=== PATIENT | female | born 2000 | race African-American/Black ===

== ENCOUNTER 2024-04-29 10:43 | Emergency (ER) | payer OTHER, SELFPAY ==
[2024-04-29 10:51] VITALS: BP 116/76; PULSE 74; RESP 19; TEMP 36.6; O2SAT 99
[2024-04-29 11:56] LABS: Bacteria Urine None Seen; Culture Indicated Urine Cult Not Indicated; RBC Urine 0-1/HPF (0-5/HPF); Squamous Epithelial Cell Urine None Seen (0-5/HPF); Urine Volume 10mL (spun); WBC Urine None Seen (0-5/HPF)
--- NOTE | 2024-04-29 12:04 | ED.ABDPAIN ---
HPI - Abdominal Pain <Ezequiel Medrano PA-C - Last Filed: 04/29/24 14:34> General Chief Complaint: Abdominal Pain Stated Complaint: Stomach pain, throwing up last night Time Seen by Provider: 04/29/24 11:43 Source: patient Mode of arrival: Ambulatory History of Present Illness HPI narrative: 23-year-old female with no reported past medical history presents to the ED with 2 days of nausea, vomiting, abdominal pain. Patient states her symptoms started last night with nausea and vomiting, she had 1 episode of vomiting. This morning she awoke to abdominal pain and continuing nausea. Patient endorses generalized abdominal pain. No fever, chills, chest pain, shortness of breath, lightheadedness, dizziness, syncope. No diarrhea. Related Data Allergies Allergy/AdvReac Type Severity Reaction Status Date / Time No Known Drug Allergies Allergy Verified 04/29/24 12:21 Review of Systems <Ezequiel Medrano PA-C - Last Filed: 04/29/24 14:34> Constitutional Constitutional: Denies chills, Denies fatigue, Denies fever(s), Denies frequent falls, Denies lethargy and Denies weakness Eyes Eyes: Denies change in vision, Denies eye discharge, Denies irritation and Denies loss of vision ENT Ears, Nose, Mouth, and Throat: Denies change in voice, Denies dizziness, Denies neck pain, Denies sore throat and Denies throat swelling Cardiovascular Cardiovascular: Denies chest pain, Denies irregular heart rhythm, Denies lightheadedness, Denies palpitations, Denies dyspnea, Denies dyspnea on exertion and Denies orthopnea Respiratory Respiratory: Denies cough, Denies dyspnea, Denies dyspnea on exertion and Denies wheezing Gastrointestinal Gastrointestinal: Reports abdominal pain, Denies change in bowel habits, Denies diarrhea, Reports nausea and Reports vomiting Musculoskeletal Musculoskeletal: Denies neck pain and Denies numbness Integumentary/Breasts Skin/Breast: Denies pruritus, Denies erythema, Denies rash and Denies wounds Neurologic Neurologic: Denies behavioral changes, Denies confusion, Denies dizziness, Denies frequent falls, Denies loss of vision, Denies numbness and Denies weakness Psychiatric Psychiatric: Denies anxiety, Denies behavioral changes, Denies confusion, Denies depression, Denies homicidal ideation and Denies suicidal ideation Endocrine Endocrine: Denies fatigue, Denies flushing and Denies palpitations Hematologic/Lymphatic Hematologic/Lymphatic: Denies easy bruising Allergic/Immunologic Allergic/Immunologic: Denies urticaria, Denies throat swelling and Denies wheezing Patient History <Ezequiel Medrano PA-C - Last Filed: 04/29/24 14:34> Social History Smoking Status: Never smoker Smoking Status: Never smoker Exam <Ezequiel Medrano PA-C - Last Filed: 04/29/24 14:34> Narrative Exam Narrative: Const General:?cooperative, healthy appearing and comfortable [facility] Head:?normal to inspection Ears:?hearing grossly normal bilaterally Nose:?external nose normal Face and sinus:?normal facial exam and sinuses nontender Mouth:?oral mucosae normal Throat:?posterior oropharynx normal Eyes General:?appearance normal, both eyes and all related structures Neck Neck:?normal visual inspection and no lymphadenopathy noted Resp Effort & Inspection:?normal respiratory effort Auscultation:?clear to auscultation bilaterally Cardio Rate:?regular rate Rhythm:?regular rhythm GI Tenderness to palpation in the epigastric, upper quadrants, suprapubic region. Abdomen is soft, nondistended. Neuro General:?patient alert, patient awake and patient oriented x3 Initial Vital Signs Initial Vital Signs: Vital Signs Temperature 97.9 F 04/29/24 10:51 Pulse Rate 74 04/29/24 10:51 Respiratory Rate 19 04/29/24 10:51 Blood Pressure 116/76 04/29/24 10:51 Pulse Oximetry 99 04/29/24 10:51 Oxygen Delivery Method Room Air 04/29/24 10:51 <Genevieve Reza DO - Last Filed: 05/01/24 23:17> Initial Vital Signs Initial Vital Signs: Vital Signs Temperature 97.9 F 04/29/24 10:51 Pulse Rate 74 04/29/24 10:51 Respiratory Rate 19 04/29/24 10:51 Blood Pressure 116/76 04/29/24 10:51 Pulse Oximetry 99 04/29/24 10:51 Oxygen Delivery Method Room Air 04/29/24 10:51 Course <Ezequiel Medrano PA-C - Last Filed: 04/29/24 14:34> Orders Ordered: Discontinued Medications Ketorolac Tromethamine (Ketorolac 30 Mg/Ml Vial) 15 mg IV NOW ONE Stop: 04/29/24 12:11 Last Admin: 04/29/24 12:21 Dose: 15 mg Documented By: ES Ondansetron HCl (Ondansetron 4 Mg/2 Ml Inj) 4 mg IV NOW ONE Stop: 04/29/24 12:12 Last Admin: 04/29/24 12:22 Dose: 4 mg Documented By: ES Vital Signs Vital signs: Vital Signs - 8 hr 04/29/24 10:51 Temperature 97.9 F Pulse Rate 74 Respiratory Rate 19 Blood Pressure 116/76 Pulse Oximetry 99 Oxygen Delivery Method Room Air <Genevieve Reza DO - Last Filed: 05/01/24 23:17> Orders Ordered: Discontinued Medications Ketorolac Tromethamine (Ketorolac 30 Mg/Ml Vial) 15 mg IV NOW ONE Stop: 04/29/24 12:11 Last Admin: 04/29/24 12:21 Dose: 15 mg Documented By: ES Ondansetron HCl (Ondansetron 4 Mg/2 Ml Inj) 4 mg IV NOW ONE Stop: 04/29/24 12:12 Last Admin: 04/29/24 12:22 Dose: 4 mg Documented By: ES Vital Signs Vital signs: Vital Signs - 8 hr 04/29/24 10:51 Temperature 97.9 F Pulse Rate 74 Respiratory Rate 19 Blood Pressure 116/76 Pulse Oximetry 99 Oxygen Delivery Method Room Air MDM - Abdominal Pain <Ezequiel Medrano PA-C - Last Filed: 04/29/24 14:34> Lab Data 04/29/24 12:25 04/29/24 12:25 Labs: Lab Results 04/29/24 04/29/24 Range/Units 11:20 12:25 WBC 6.5 (4.5-11.0) X10^3/uL RBC 4.15 (4.0-5.2) X10^6/uL Hgb 12.5 (12.0-16.0) g/dL Hct 36.7 (36-46) % MCV 88.4 (80-100) fL MCH 30.0 (26-34) PG MCHC 34.0 (30-36) % RDW 12.6 (11.6-14.8) % Plt Count 180 (150-400) X10^3/uL Neut % (Auto) 65.1 (50-75) % Lymph % (Auto) 26.8 (25-40) % Bibb % (Auto) 6.7 (3-14) % Eos % (Auto) 1.1 L (2-4) % Baso % (Auto) 0.3 (0-2) % Neut # (Auto) 4200 (8740-2736) /uL Lymph # (Auto) 1700 (0613-2371) /uL Bibb # (Auto) 400 (0-900) /uL Eos # (Auto) 100 (0-450) /uL Baso # (Auto) 0 (0-100) /uL PT 12.7 H (9.4-12.5) SECONDS INR 1.1 (0.9-1.3) APTT 36 (25.1-36.5) SECONDS Sodium 136 L (137-145) mmol/L Potassium 3.8 (3.4-5.1) mmol/L Chloride 104 (98-107) mmol/L Carbon Dioxide 23 (22-32) mmol/L BUN 16 (7-17) mg/dL Creatinine 0.77 (0.52-1.04) mg/dL Estimated GFR > 60 (>60) mL/min BUN/Creatinine Ratio 20.8 (6-22) Glucose 95 (70-100) mg/dL Calcium 9.2 (8.4-10.2) mg/dL Total Bilirubin 1.3 (0.2-1.3) mg/dL AST 133 H (14-36) IU/L ALT 36 H (<35) IU/L Alkaline Phosphatase 46 (38-126) U/L Total Protein 7.1 (6.3-8.2) g/dL Albumin 4.3 (3.5-5.0) g/dL Globulin 2.8 (1.7-4.1) g/dL Albumin/Globulin Ratio 1.5 (1.0-2.8) Lipase 180 (23-300) U/L Urine RBC 0-1/hpf (0-5/HPF) Urine WBC None seen (0-5/HPF) Ur Squamous Epith Cells None seen (0-5/HPF) Urine Bacteria None seen (None) Ur Culture Indicated? Cult not indicated Vol Urine Centrifuged 10ml (spun) Point of care testing: Point of Care Testing Test Results Negative Urine Dip Bedside Urine Glucose Negative Bedside Urine Bilirubin - Negative Bedside Urine Ketone - Negative Urine Specific [place] 1.015 Bedside Urine Occult Blood +/- Bedside Urine pH 7.0 Bedside Urine Protein - Negative Bedside Urine Urobilinogen - Negative Bedside Urine Nitrite - Negative Bedside Urine Leukocytes - Negative Esterase MDM Narrative Medical decision making narrative: 23-year-old female with no reported past medical history presents to the ED with 2 days of nausea, vomiting, abdominal pain. Concern for gastritis versus GERD versus PUD versus appendicitis versus biliary etiology versus other intra-abdominal pathology versus other. Will obtain labs, UA, CT abdomen pelvis. Will consider ultrasound. Will give Toradol, Zofran for symptoms. UA without UTI. Transaminases elevated with AST 133, ALT 36. All other labs within normal limits. CT abdomen pelvis shows a left ovarian cyst measuring 4.9 cm. Pelvic ultrasound was obtained to rule out ovarian torsion. Ultrasound with no evidence of ovarian torsion. Slightly complicated cystic structure is noted in the left ovary measures 5.3 x 4.8 x 2.9 cm in size, and may represent complex ovarian cyst versus cystic neoplasm. No right ovarian lesion. Normal-appearing uterus and endometrium. Discussed findings with patient. Recommend follow-up with OBGYN for further evaluation and treatment. ED return precautions discussed with patient. Patient verbalized understanding. Medical records reviewed: Yes <Genevieve Reza DO - Last Filed: 05/01/24 23:17> Lab Data Labs: Lab Results 04/29/24 04/29/24 Range/Units 11:20 12:25 WBC 6.5 (4.5-11.0) X10^3/uL RBC 4.15 (4.0-5.2) X10^6/uL Hgb 12.5 (12.0-16.0) g/dL Hct 36.7 (36-46) % MCV 88.4 (80-100) fL MCH 30.0 (26-34) PG MCHC 34.0 (30-36) % RDW 12.6 (11.6-14.8) % Plt Count 180 (150-400) X10^3/uL Neut % (Auto) 65.1 (50-75) % Lymph % (Auto) 26.8 (25-40) % Bibb % (Auto) 6.7 (3-14) % Eos % (Auto) 1.1 L (2-4) % Baso % (Auto) 0.3 (0-2) % Neut # (Auto) 4200 (1139-1620) /uL Lymph # (Auto) 1700 (8547-7912) /uL Bibb # (Auto) 400 (0-900) /uL Eos # (Auto) 100 (0-450) /uL Baso # (Auto) 0 (0-100) /uL PT 12.7 H (9.4-12.5) SECONDS INR 1.1 (0.9-1.3) APTT 36 (25.1-36.5) SECONDS Sodium 136 L (137-145) mmol/L Potassium 3.8 (3.4-5.1) mmol/L Chloride 104 (98-107) mmol/L Carbon Dioxide 23 (22-32) mmol/L BUN 16 (7-17) mg/dL Creatinine 0.77 (0.52-1.04) mg/dL Estimated GFR > 60 (>60) mL/min BUN/Creatinine Ratio 20.8 (6-22) Glucose 95 (70-100) mg/dL Calcium 9.2 (8.4-10.2) mg/dL Total Bilirubin 1.3 (0.2-1.3) mg/dL AST 133 H (14-36) IU/L ALT 36 H (<35) IU/L Alkaline Phosphatase 46 (38-126) U/L Total Protein 7.1 (6.3-8.2) g/dL Albumin 4.3 (3.5-5.0) g/dL Globulin 2.8 (1.7-4.1) g/dL Albumin/Globulin Ratio 1.5 (1.0-2.8) Lipase 180 (23-300) U/L Urine RBC 0-1/hpf (0-5/HPF) Urine WBC None seen (0-5/HPF) Ur Squamous Epith Cells None seen (0-5/HPF) Urine Bacteria None seen (None) Ur Culture Indicated? Cult not indicated Vol Urine Centrifuged 10ml (spun) Point of care testing: Point of Care Testing Test Results Negative Urine Dip Bedside Urine Glucose Negative Bedside Urine Bilirubin - Negative Bedside Urine Ketone - Negative Urine Specific [place] 1.015 Bedside Urine Occult Blood +/- Bedside Urine pH 7.0 Bedside Urine Protein - Negative Bedside Urine Urobilinogen - Negative Bedside Urine Nitrite - Negative Bedside Urine Leukocytes - Negative Esterase Discharge Plan Departure Patient Disposition: Home Clinical Impression: Abdominal pain Qualifiers: Abdominal location: generalized Qualified Code(s): R10.84 - Generalized abdominal pain Ovarian cyst Qualifiers: Laterality: left Qualified Code(s): N83.202 - Unspecified ovarian cyst, left side Instructions: DI for Ovarian Cyst, DI for Abdominal Pain-Adult Activity Restrictions/Additional Instructions: You were evaluated in the ED today for abdominal pain, nausea and vomiting. Your CT scan and ultrasound show a left ovarian cyst, but no other abnormalities. While this ovarian cyst could be causing your symptoms, it is also possible that your symptoms could be from a touch of food poisoning, acid reflux. Please continue to stay well hydrated. Please follow-up with an OBGYN for further evaluation of the ovarian cyst. Return to the ED if you have worsening symptoms. Referrals: ProviderEmmanuel [Primary Care Provider] - Stand Alone Forms: Patient Portal/API/Survey ED Sign-out <Genevieve Reza DO - Last Filed: 05/01/24 23:17> Cosign ED Attending Darek Attestation: I was available for consultation.
--- NOTE | 2024-04-29 12:11 | DI.CT.S_ITS ---
PROCEDURE: CT ABDOMEN PELVIS W CON INDICATIONS: abd pain TECHNIQUE: After the administration of intravenous contrast, axial sections acquired from the lung bases to the pubic symphysis. Coronal and sagittal reformats were performed. For radiation dose reduction, the following was used: automated exposure control, adjustment of mA and/or kV according to patient size. COMPARISON: None. FINDINGS: Image quality: Diagnostic. Lower Chest: No significant findings. ABDOMEN: Liver: No solid mass. Gallbladder: No radiopaque gallstones or wall thickening. Biliary ducts: No biliary dilation. Pancreas: No ductal dilation. Spleen: Size is within normal limits. Adrenal Glands: No adrenal nodules. Kidneys and Ureters: No hydronephrosis. No solid mass. No complex renal cystic lesion which requires follow up. Stomach and Bowel: Normal colonic caliber, without significant wall thickening. Normal appendix. Peritoneum: No abnormal intraperitoneal fluid. No free air. Ventral Wall: No significant ventral hernia. Abdominal Nodes: No retroperitoneal or mesenteric adenopathy by size criteria. Vessels: Aorta and inferior vena cava are normal in size. PELVIS: Pelvic Organs: Left ovarian cyst measuring 4.9 cm. Bladder: No bladder wall thickening, accounting for underdistention. Pelvic Nodes: No enlarged lymph nodes. Miscellaneous: No inguinal hernias are seen. Bones: No aggressive osseous abnormality. IMPRESSION: Left ovarian cyst measuring 4.9 cm. If there is left lower quadrant pain, consider sonographic evaluation to exclude ovarian torsion. Otherwise, no findings to explain the patient's abdominal pain. Normal appendix, normal gallbladder, normal kidneys. Dictated by: Anthony Linda M.D. on 04/29/2024 at 13:18 Approved by: Anthony Linda M.D. on 04/29/2024 at 13:20
[2024-04-29] MEDS: KETOROLAC 30 MG/ML VIAL 15 MG IV (12:21)
[2024-04-29] MEDS: ONDANSETRON 4 MG/2 ML INJ IV (12:22)
[2024-04-29 12:37] LABS: Add Manual Diff / Slide Review NO; Basophils Absolute Auto 0 /uL (0-100); Basophils Percent Auto 0.3 % (0-2); Eosinophils Absolute Auto 100 /uL (0-450); Eosinophils Percent Auto 1.1 % (2-4); Hematocrit 36.7 % (36-46); Hemoglobin 12.5 g/dL (12.0-16.0); Lymphocytes Absolute Auto 1700 /uL (1100-4500); Lymphocytes Percent Auto 26.8 % (25-40); Mean Corpuscular Volume 88.4 fL (80-100); Monocytes Absolute Auto 400 /uL (0-900); Monocytes Percent Auto 6.7 % (3-14); Neutrophils Absolute Auto 4200 /uL (1500-7000); Neutrophils Percent Auto 65.1 % (50-75); Platelet Count 180 X10^3/uL (150-400); Red Blood Cell Count 4.15 X10^6/uL (4.0-5.2); Red Cell Distribution Width 12.6 % (11.6-14.8); White Blood Cell Count 6.5 X10^3/uL (4.5-11.0)
[2024-04-29 12:49] LABS: INR 1.1 (0.9-1.3); Prothrombin Time 12.7 SECONDS (9.4-12.5)
[2024-04-29 12:51] LABS: PTT Partial Thromboplastin Tim 36 SECONDS (25.1-36.5)
[2024-04-29 12:53] LABS: Alanine Aminotransferase 36 IU/L (<35); Albumin 4.3 g/dL (3.5-5.0); Albumin Globulin Ratio 1.5 (1.0-2.8); Alkaline Phosphatase 46 U/L (38-126); Aspartate Aminotransferase 133 IU/L (14-36); BUN Creatinine Ratio 20.8 (6-22); Bilirubin Total 1.3 mg/dL (0.2-1.3); Blood Urea Nitrogen 16 mg/dL (7-17); Calcium 9.2 mg/dL (8.4-10.2); Carbon Dioxide 23 mmol/L (22-32); Chloride 104 mmol/L (98-107); Estimated Glomerular Filt Rate > 60 mL/min (>60); Globulin 2.8 g/dL (1.7-4.1); Glucose 95 mg/dL (70-100); HEMOLYSIS < 15 (0-50); Lipase 180 U/L (23-300); Potassium 3.8 mmol/L (3.4-5.1); Sodium 136 mmol/L (137-145); Total Protein 7.1 g/dL (6.3-8.2)
--- NOTE | 2024-04-29 13:28 | DI.US.S_ITS ---
PROCEDURE: US PELVIC COMPLETE INDICATIONS: L ovarian cyst; ?torsion TECHNIQUE: Real-time scanning was performed of the pelvic organs, with image documentation. Additional endovaginal scanning was necessary due to incomplete visualization of the adnexal and endometrial structures by transabdominal scanning. COMPARISON: [facility], CT, CT ABDOMEN PELVIS W CON, 04/29/2024, 12:58. FINDINGS: Uterus: Uterus is anteverted and normal in size at 8.6 x 3.5 x 5.8 cm. The myometrium is homogeneous. The endometrium measures 12.9 mm combined thickness. No endometrial mass or fluid. Ovaries: The right ovary measures 2.5 x 2.6 x 2.2 cm, with a calculated ovarian volume of 7.4 cc. The left ovary measures 5.3 x 2.6 x 5.5 cm, with a calculated ovarian volume of 53.9 cc. Cystic structure is noted in left ovary measures 5.3 x 4.8 x 2.9 cm in size without internal vascularity. Questionable internal debris and possible soft tissue echotexture area is noted. Less than 12 follicles can be seen in each ovary. Normal arterial and venous flow is seen in bilateral images. No adnexal masses are seen. Other: No pathologic free abdominal or pelvic fluid. IMPRESSION: 1. No evidence of ovarian torsion. Slightly complicated cystic structure is noted in left ovary measures 5.3 x 4.8 x 2.9 cm in size and may represent complex ovarian cyst versus cystic neoplasm. Short term 4-6 week ultrasound follow-up is recommended. 2. No right ovarian lesion. Normal appearing uterus and endometrium. We strive to produce accurate, complete, and clear reports of imaging services. To assist us in improving patient care, this report was composed using standard report templates and voice recognition software. Therefore, it may contain abnormal punctuation, insertions and/or omissions. Occasional wrong-word or sound-alike substitutions may occur. Though we review the report and make efforts to correct it, we do recommend that the report be read carefully in proper context to recognize any text inaccuracies. Dictated by: Lauro Bates M.D. on 04/29/2024 at 14:00 Approved by: Lauro Bates M.D. on 04/29/2024 at 14:05
[2024-04-29 14:37] VITALS: BP 108/76; PULSE 85; RESP 16; O2SAT 99
== END 2024-04-29 14:44 | disposition home or self-care (01) ==
PROVIDERS: Emergency Medicine; Emergency Provider Student in an Organized Health Care Education/Training Program
DX: R10.84 Generalized abdominal pain (principal); R11.2 Nausea with vomiting, unspecified; N83.202 Unspecified ovarian cyst, left side
CPT/HCPCS: 36415; 74177; 76856; 80053; 81003; 81015; 81025; 83690; 85025; 85610; 85730; 93975; 96374; 96375; 99284; J1885; J2405; Q9967

== ENCOUNTER 2024-09-11 20:32 | Emergency (ER) | payer OTHER, SELFPAY ==
[2024-09-11] VITALS (9 sets, daily range): BP systolic 104–125; BP diastolic 59–61; PULSE 76–95; RESP 16–21; TEMP 36.8; O2SAT 99–100; BMI 19.8
--- NOTE | 2024-09-11 21:14 | ED.SEIZURE ---
HPI - Seizure <Jhon Betst MD - Last Filed: 09/12/24 07:46> General Chief Complaint: Seizure Stated Complaint: seizure like activity Time Seen by Provider: 09/11/24 21:08 Source: patient and EMS Mode of arrival: EMS History of Present Illness HPI Narrative: 23-year-old female had ground level fall yesterday, evaluated at [facility], no imaging recalled, today seemed to have shaking atypical motor activity, concern for seizures. No known seizure activity. No new medications or change in medications. No drug or alcohol use suspected. No history of diabetes, no history of low sugar problems. Related Data Allergies Allergy/AdvReac Type Severity Reaction Status Date / Time No Known Drug Allergies Allergy Verified 04/29/24 12:21 Exam <Jhon Betts MD - Last Filed: 09/12/24 07:46> Narrative Exam Narrative: GENERAL: Called to room shortly after triage for shaking, atypical shaking non tonic clonic HEAD: Atraumatic. Small 1cm left forehead laceration looks consistent with from yesterday, not obviously infected. EYES: Pupils equal round and reactive. Extraocular motions intact. No scleral icterus. No injection or drainage. ENT: Nose without bleeding, purulent drainage. Airway patent. NECK: Trachea midline. Non tender CARDIOVASCULAR: Regular rate and rhythm without murmurs, gallops, or rubs. RESPIRATORY: Clear to auscultation. Breath sounds equal bilaterally. No wheezes, rales, or rhonchi. GASTROINTESTINAL: Abdomen soft, non-tender, nondistended. EXTREMITIES: No edema or joint tenderness. BACK: Nontender without deformity or crepitance. No flank tenderness. NEURO: AOx3. Atypical non tonic-clonic like motor activity, sitting up and then thrashing back down. Non directable. Pupils conjugate. No posturing, moves arms and legs but not to command. No facial droop. SKIN: No rash or erythema of visible areas Initial Vital Signs Initial Vital Signs: Vital Signs Pulse Rate 84 09/11/24 20:39 Respiratory Rate 21 09/11/24 20:39 Pulse Oximetry 100 09/11/24 20:39 <Andrae Bain DO - Last Filed: 09/13/24 06:48> Initial Vital Signs Initial Vital Signs: Vital Signs Pulse Rate 84 09/11/24 20:39 Respiratory Rate 21 09/11/24 20:39 Pulse Oximetry 100 09/11/24 20:39 Course <Jhon Betts MD - Last Filed: 09/12/24 07:46> Orders Ordered: Discontinued Medications Diazepam (Diazepam 10 Mg/2 Ml Syringe) 5 mg IV NOW ONE Stop: 09/11/24 21:11 Last Admin: 09/11/24 21:21 Dose: 5 mg Documented By: ABIGAIL Diazepam (Diazepam 10 Mg/2 Ml Syringe) 5 mg IV NOW ONE Stop: 09/11/24 21:13 Last Admin: 09/11/24 21:21 Dose: Not Given Documented By: NEY Vital Signs Vital signs: Vital Signs - 8 hr 09/12/24 02:00 09/12/24 02:30 09/12/24 03:00 Pulse Rate 78 77 68 Respiratory Rate 21 30 H 21 Blood Pressure Pulse Oximetry 100 100 100 Oxygen Delivery Method 09/12/24 03:30 09/12/24 03:39 09/12/24 03:39 Pulse Rate 71 64 Respiratory Rate 20 24 Blood Pressure 109/58 L Pulse Oximetry 100 99 Oxygen Delivery Method 09/12/24 03:43 09/12/24 04:00 09/12/24 04:30 Pulse Rate 72 70 64 Respiratory Rate 18 26 H 17 Blood Pressure 109/58 L Pulse Oximetry 98 100 99 Oxygen Delivery Method Room Air 09/12/24 05:00 09/12/24 05:30 09/12/24 06:00 Pulse Rate 66 74 82 Respiratory Rate 17 18 16 Blood Pressure Pulse Oximetry 99 99 96 Oxygen Delivery Method 09/12/24 06:30 09/12/24 07:00 09/12/24 07:30 Pulse Rate 68 73 67 Respiratory Rate 20 19 18 Blood Pressure Pulse Oximetry 100 100 100 Oxygen Delivery Method 09/12/24 08:00 09/12/24 08:30 09/12/24 09:00 Pulse Rate 68 66 75 Respiratory Rate 23 18 Blood Pressure Pulse Oximetry 100 100 100 Oxygen Delivery Method 09/12/24 09:30 09/12/24 09:34 09/12/24 09:34 Pulse Rate 78 69 Respiratory Rate 14 Blood Pressure 101/59 L Pulse Oximetry 100 100 Oxygen Delivery Method <Andrae Bain DO - Last Filed: 09/13/24 06:48> Orders Ordered: Discontinued Medications Diazepam (Diazepam 10 Mg/2 Ml Syringe) 5 mg IV NOW ONE Stop: 09/11/24 21:11 Last Admin: 09/11/24 21:21 Dose: 5 mg Documented By: ABIGAIL Diazepam (Diazepam 10 Mg/2 Ml Syringe) 5 mg IV NOW ONE Stop: 09/11/24 21:13 Last Admin: 09/11/24 21:21 Dose: Not Given Documented By: NEY Vital Signs Vital signs: Vital Signs - 8 hr 09/12/24 02:00 09/12/24 02:30 09/12/24 03:00 Pulse Rate 78 77 68 Respiratory Rate 21 30 H 21 Blood Pressure Pulse Oximetry 100 100 100 Oxygen Delivery Method 09/12/24 03:30 09/12/24 03:39 09/12/24 03:39 Pulse Rate 71 64 Respiratory Rate 20 24 Blood Pressure 109/58 L Pulse Oximetry 100 99 Oxygen Delivery Method 09/12/24 03:43 09/12/24 04:00 09/12/24 04:30 Pulse Rate 72 70 64 Respiratory Rate 18 26 H 17 Blood Pressure 109/58 L Pulse Oximetry 98 100 99 Oxygen Delivery Method Room Air 09/12/24 05:00 09/12/24 05:30 09/12/24 06:00 Pulse Rate 66 74 82 Respiratory Rate 17 18 16 Blood Pressure Pulse Oximetry 99 99 96 Oxygen Delivery Method 09/12/24 06:30 09/12/24 07:00 09/12/24 07:30 Pulse Rate 68 73 67 Respiratory Rate 20 19 18 Blood Pressure Pulse Oximetry 100 100 100 Oxygen Delivery Method 09/12/24 08:00 09/12/24 08:30 09/12/24 09:00 Pulse Rate 68 66 75 Respiratory Rate 23 18 Blood Pressure Pulse Oximetry 100 100 100 Oxygen Delivery Method 09/12/24 09:30 09/12/24 09:34 09/12/24 09:34 Pulse Rate 78 69 Respiratory Rate 14 Blood Pressure 101/59 L Pulse Oximetry 100 100 Oxygen Delivery Method MDM - Seizure <Jhon Betts MD - Last Filed: 09/12/24 07:46> Lab Data Attestation: I reviewed the patient's lab results. Lab results narrative: POC glucose 116. White blood cell count 9100, hemoglobin 13.7, platelets adequate. Glucose 105. Normal renal function. Serum CO2 21 mildly decreased. Electrolytes unremarkable including magnesium. Serum hCG negative. Liver functions normal. Ethanol level negative. 09/11/24 20:35 09/11/24 20:35 Labs: Lab Results 09/11/24 09/11/24 09/11/24 Range/Units 20:35 21:11 23:04 WBC 9.1 (4.5-11.0) X10^3/uL RBC 4.50 (4.0-5.2) X10^6/uL Hgb 13.7 (12.0-16.0) g/dL Hct 39.8 (36-46) % MCV 88.3 (80-100) fL MCH 30.4 (26-34) PG MCHC 34.4 (30-36) % RDW 12.7 (11.6-14.8) % Plt Count 233 (150-400) X10^3/uL Neut % (Auto) 49.0 L (50-75) % Lymph % (Auto) 42.2 H (25-40) % [place] % (Auto) 7.4 (3-14) % Eos % (Auto) 1.0 L (2-4) % Baso % (Auto) 0.4 (0-2) % Neut # (Auto) 4500 (9221-8121) /uL Lymph # (Auto) 3800 (9585-8656) /uL [place] # (Auto) 700 (0-900) /uL Eos # (Auto) 100 (0-450) /uL Baso # (Auto) 0 (0-100) /uL Sodium 138 (137-145) mmol/L Potassium 3.4 (3.4-5.1) mmol/L Chloride 103 (98-107) mmol/L Carbon Dioxide 21 L (22-32) mmol/L BUN 17 (7-17) mg/dL Creatinine 0.96 (0.52-1.04) mg/dL Estimated GFR > 60 (>60) mL/min BUN/Creatinine Ratio 17.7 (6-22) Glucose 105 H (70-99) mg/dL POC Whole Bld Glucose 116 H (70-99) mg/dL Calcium 9.6 (8.4-10.2) mg/dL Magnesium 1.7 (1.6-2.3) mg/dL Total Bilirubin 1.1 (0.2-1.3) mg/dL AST 30 (14-36) IU/L ALT 16 (<35) IU/L Alkaline Phosphatase 52 (38-126) U/L Troponin I (0.01-0.034) ng/mL Total Protein 7.9 (6.3-8.2) g/dL Albumin 4.7 (3.5-5.0) g/dL Globulin 3.2 (1.7-4.1) g/dL Albumin/Globulin Ratio 1.5 (1.0-2.8) HCG, Quant < 2.39 mIU/mL U Opiates 300ng/mL cut Negative (Negative) Ur Oxycodone Screen Negative (Negative) Urine Methadone Screen Negative (Negative) Ur Barbiturates Screen Negative (Negative) U Tricyclic Antidepress Negative (Negative) Ur Phencyclidine Scrn Negative (Negative) Ur Amphetamines Screen Negative (Negative) U Methamphetamines Scrn Negative (Negative) Ur MDMA Scrn (Ecstasy) Negative (Negative) U Benzodiazepines Scrn Negative (Negative) Urine Cocaine Screen Negative (Negative) U Marijuana (THC) Screen Negative (Negative) Urine pH Normal (Normal) Urine Specific Lindsay Normal (Normal) Ethyl Alcohol < 10 (<10) mg/dL Ur Creatinine Normal (Normal) 09/12/ Range/Units 06:55 WBC (4.5-11.0) X10^3/uL RBC (4.0-5.2) X10^6/uL Hgb (12.0-16.0) g/dL Hct (36-46) % MCV (80-100) fL MCH (26-34) PG MCHC (30-36) % RDW (11.6-14.8) % Plt Count (150-400) X10^3/uL Neut % (Auto) (50-75) % Lymph % (Auto) (25-40) % [place] % (Auto) (3-14) % Eos % (Auto) (2-4) % Baso % (Auto) (0-2) % Neut # (Auto) (5896-5451) /uL Lymph # (Auto) (0500-6328) /uL [place] # (Auto) (0-900) /uL Eos # (Auto) (0-450) /uL Baso # (Auto) (0-100) /uL Sodium (137-145) mmol/L Potassium (3.4-5.1) mmol/L Chloride (98-107) mmol/L Carbon Dioxide (22-32) mmol/L BUN (7-17) mg/dL Creatinine (0.52-1.04) mg/dL Estimated GFR (>60) mL/min BUN/Creatinine Ratio (6-22) Glucose (70-99) mg/dL POC Whole Bld Glucose (70-99) mg/dL Calcium (8.4-10.2) mg/dL Magnesium (1.6-2.3) mg/dL Total Bilirubin (0.2-1.3) mg/dL AST (14-36) IU/L ALT (<35) IU/L Alkaline Phosphatase (38-126) U/L Troponin I < 0.012 (0.01-0.034) ng/mL Total Protein (6.3-8.2) g/dL Albumin (3.5-5.0) g/dL Globulin (1.7-4.1) g/dL Albumin/Globulin Ratio (1.0-2.8) HCG, Quant mIU/mL U Opiates 300ng/mL cut (Negative) Ur Oxycodone Screen (Negative) Urine Methadone Screen (Negative) Ur Barbiturates Screen (Negative) U Tricyclic Antidepress (Negative) Ur Phencyclidine Scrn (Negative) Ur Amphetamines Screen (Negative) U Methamphetamines Scrn (Negative) Ur MDMA Scrn (Ecstasy) (Negative) U Benzodiazepines Scrn (Negative) Urine Cocaine Screen (Negative) U Marijuana (THC) Screen (Negative) Urine pH (Normal) Urine Specific Lindsay (Normal) Ethyl Alcohol (<10) mg/dL Ur Creatinine (Normal) Imaging Data CT - cervical spine: Radiologist's Impression: [address] [address] [address] Scan Report Signed Patient: Elba Bales MR#: [id number] : 2000 Acct:[id number] Age/Sex: 23 / F Date of Service: 09/11/24 Loc: ED Accession Number: [id number] Procedure: CT cervical spine wo con Ordering Provider: Jhon Betts MD PROCEDURE: CT CERVICAL SPINE WO CON INDICATIONS: ?sz, recent fall TECHNIQUE: Noncontrast 3 mm thick sections acquired from the skull base to the T4 level. Sagittal and coronal reformats were then constructed. For radiation dose reduction, the following was used: automated exposure control, adjustment of mA and/or kV according to patient size. COMPARISON: None. FINDINGS: Image quality: Excellent. Bones: No fractures or dislocations. Visualized superior ribs are intact. Soft tissues: Prevertebral soft tissues are normal in thickness. No paravertebral hematomas. No apical pneumothoraces. IMPRESSION: No displaced fracture or traumatic subluxation. Dictated by: Edward Rousseau M.D. on 09/11/2024 at 21:43 Approved by: Edward Rousseau M.D. on 09/11/2024 at 21:45 CT scan - head: Radiologist's Impression: [place] [address] CT Scan Report Signed Patient: Elba Bales MR#: [id number] : 2000 Acct:[id number] Age/Sex: 23 / F Date of Service: 09/11/24 Loc: ED Accession Number: [id number] Procedure: CT head/brain wo con Ordering Provider: Jhon Betts MD PROCEDURE: CT HEAD/BRAIN WO CON INDICATIONS: fall trauma, ?sz TECHNIQUE: Noncontrast 4.5 mm thick angled axial sections acquired from the foramen magnum to the vertex, with coronal and sagittal reformats. For radiation dose reduction, the following was used: automated exposure control, adjustment of mA and/or kV according to patient size. COMPARISON: None. FINDINGS: Image quality: Diagnostic. CSF spaces: Basal cisterns are patent. No extra-axial fluid collections. Ventricles are normal in size and shape. Brain: No midline shift. No intracranial mass effect or hemorrhage. Quiroz-white matter interface is normal. Skull and face: Calvarium and visualized facial bones are intact, without suspicious lesions. Sinuses: Visualized sinuses and mastoids are clear. IMPRESSION: No acute intracranial pathology. Dictated by: Edward Rousseau M.D. on 09/11/2024 at 21:41 Approved by: Edward Rousseau M.D. on 09/11/2024 at 21:43 [facility] Narrative Medical decision making narrative: 23-year-old female with recent reported fall, evaluated at ED alternate facility yesterday, family believes patient did not have CT head neuro imaging, discharged home, no recent change in medications, today has atypical movement noted by family, concern for possible seizures. No new injury known. Afebrile. Shortly after arrival patient had thrashing about, shaking activity but non clonic tonic appearing, sitting up and thrashing backwards. Atypical for seizure-like activity. POC glucose 116. IV Valium. CT head noncontrast, CT cervical spine. Request records from [facility] from recent visit. DDx consider psychomotor agitation, dystonic reaction, intoxication, other. Seems less likely seizure activity with non tonic-clonic alternating shaking activity. Patient calm after IV Valium dose. Sent CT studies. Await records from [facility]. Sleeping after returned from CT. CT head no acute changes. CT cervical spine no acute changes. See radiology reports. [facility] records reviewed, patient had ground level fall with forehead contusion and moderate headache, CT head negative, EKG unremarkable, labs including test negative. Lab data: POC glucose 116. White blood cell count 9100, hemoglobin 13.7, platelets adequate. Glucose 105. Normal renal function. Serum CO2 21 mildly decreased. Electrolytes unremarkable. Serum hCG negative. Liver functions normal. Ethanol level negative. UDS negative. Mother called from [place], who is apparently coming to see patient in the morning. Mother reports recent visit [facility] area, ultrasound apparently done with some kind of concern for pelvic mass, test was negative today, patient did not seem to be endorsing any abdominopelvic pain but was quite agitated before IV Valium sedation. Currently sleeping. Consider ultrasound pelvis when patient awake, if she will allow. 0400, patient is still sleeping after Valium dose for emergent imaging. 0600, patient talking on the phone with her mother who is apparently traveling here from [place]. Some concern about some diagnosis of pelvic mass somewhere, very unclear history. Pelvic ultrasound done now this morning, verbal sonotech report small ovarian cyst only. Await Radiology over-read report. 0645, patient seems reluctant to be discharged, wants to stay until her mother gets here from [place] at 1:00 p.m., unclear end point, patient has concerns that she might have had a seizure, but she had thrashing about agitation activity here that did not seem consistent with seizure. Further observe per patient request. Consider group social worker consult, patient declined. 0700, signed out to Dr Bain <Andrae Bain, DO - Last Filed: 09/13/24 06:48> Lab Data Labs: Lab Results 09/11/24 09/11/24 09/11/24 Range/Units 20:35 21:11 23:04 WBC 9.1 (4.5-11.0) X10^3/uL RBC 4.50 (4.0-5.2) X10^6/uL Hgb 13.7 (12.0-16.0) g/dL Hct 39.8 (36-46) % MCV 88.3 (80-100) fL MCH 30.4 (26-34) PG MCHC 34.4 (30-36) % RDW 12.7 (11.6-14.8) % Plt Count 233 (150-400) X10^3/uL Neut % (Auto) 49.0 L (50-75) % Lymph % (Auto) 42.2 H (25-40) % [place] % (Auto) 7.4 (3-14) % Eos % (Auto) 1.0 L (2-4) % Baso % (Auto) 0.4 (0-2) % Neut # (Auto) 4500 (6395-6804) /uL Lymph # (Auto) 3800 (6742-2909) /uL [place] # (Auto) 700 (0-900) /uL Eos # (Auto) 100 (0-450) /uL Baso # (Auto) 0 (0-100) /uL Sodium 138 (137-145) mmol/L Potassium 3.4 (3.4-5.1) mmol/L Chloride 103 (98-107) mmol/L Carbon Dioxide 21 L (22-32) mmol/L BUN 17 (7-17) mg/dL Creatinine 0.96 (0.52-1.04) mg/dL Estimated GFR > 60 (>60) mL/min BUN/Creatinine Ratio 17.7 (6-22) Glucose 105 H (70-99) mg/dL POC Whole Bld Glucose 116 H (70-99) mg/dL Calcium 9.6 (8.4-10.2) mg/dL Magnesium 1.7 (1.6-2.3) mg/dL Total Bilirubin 1.1 (0.2-1.3) mg/dL AST 30 (14-36) IU/L ALT 16 (<35) IU/L Alkaline Phosphatase 52 (38-126) U/L Troponin I (0.01-0.034) ng/mL Total Protein 7.9 (6.3-8.2) g/dL Albumin 4.7 (3.5-5.0) g/dL Globulin 3.2 (1.7-4.1) g/dL Albumin/Globulin Ratio 1.5 (1.0-2.8) HCG, Quant < 2.39 mIU/mL U Opiates 300ng/mL cut Negative (Negative) Ur Oxycodone Screen Negative (Negative) Urine Methadone Screen Negative (Negative) Ur Barbiturates Screen Negative (Negative) U Tricyclic Antidepress Negative (Negative) Ur Phencyclidine Scrn Negative (Negative) Ur Amphetamines Screen Negative (Negative) U Methamphetamines Scrn Negative (Negative) Ur MDMA Scrn (Ecstasy) Negative (Negative) U Benzodiazepines Scrn Negative (Negative) Urine Cocaine Screen Negative (Negative) U Marijuana (THC) Screen Negative (Negative) Urine pH Normal (Normal) Urine Specific Lindsay Normal (Normal) Ethyl Alcohol < 10 (<10) mg/dL Ur Creatinine Normal (Normal) 09/12/24 Range/Units 06:55 WBC (4.5-11.0) X10^3/uL RBC (4.0-5.2) X10^6/uL Hgb (12.0-16.0) g/dL Hct (36-46) % MCV (80-100) fL MCH (26-34) PG MCHC (30-36) % RDW (11.6-14.8) % Plt Count (150-400) X10^3/uL Neut % (Auto) (50-75) % Lymph % (Auto) (25-40) % [place] % (Auto) (3-14) % Eos % (Auto) (2-4) % Baso % (Auto) (0-2) % Neut # (Auto) (9451-5751) /uL Lymph # (Auto) (9542-1541) /uL [place] # (Auto) (0-900) /uL Eos # (Auto) (0-450) /uL Baso # (Auto) (0-100) /uL Sodium (137-145) mmol/L Potassium (3.4-5.1) mmol/L Chloride (98-107) mmol/L Carbon Dioxide (22-32) mmol/L BUN (7-17) mg/dL Creatinine (0.52-1.04) mg/dL Estimated GFR (>60) mL/min BUN/Creatinine Ratio (6-22) Glucose (70-99) mg/dL POC Whole Bld Glucose (70-99) mg/dL Calcium (8.4-10.2) mg/dL Magnesium (1.6-2.3) mg/dL Total Bilirubin (0.2-1.3) mg/dL AST (14-36) IU/L ALT (<35) IU/L Alkaline Phosphatase (38-126) U/L Troponin I < 0.012 (0.01-0.034) ng/mL Total Protein (6.3-8.2) g/dL Albumin (3.5-5.0) g/dL Globulin (1.7-4.1) g/dL Albumin/Globulin Ratio (1.0-2.8) HCG, Quant mIU/mL U Opiates 300ng/mL cut (Negative) Ur Oxycodone Screen (Negative) Urine Methadone Screen (Negative) Ur Barbiturates Screen (Negative) U Tricyclic Antidepress (Negative) Ur Phencyclidine Scrn (Negative) Ur Amphetamines Screen (Negative) U Methamphetamines Scrn (Negative) Ur MDMA Scrn (Ecstasy) (Negative) U Benzodiazepines Scrn (Negative) Urine Cocaine Screen (Negative) U Marijuana (THC) Screen (Negative) Urine pH (Normal) Urine Specific Lindsay (Normal) Ethyl Alcohol (<10) mg/dL Ur Creatinine (Normal) ECG Data Interpretation: Sinus Raj HR 59 IN 178 QRS [address]-t wave change NO previous EKG to compare MDM Narrative Medical decision making narrative: 23-year-old female with recent reported fall, evaluated at ED alternate facility yesterday, family believes patient did not have CT head neuro imaging, discharged home, no recent change in medications, today has atypical movement noted by family, concern for possible seizures. No new injury known. Afebrile. Shortly after arrival patient had thrashing about, shaking activity but non clonic tonic appearing, sitting up and thrashing backwards. Atypical for seizure-like activity. POC glucose 116. IV Valium. CT head noncontrast, CT cervical spine. Request records from [facility] from recent visit. DDx consider psychomotor agitation, dystonic reaction, intoxication, other. Seems less likely seizure activity with non tonic-clonic alternating shaking activity. Patient calm after IV Valium dose. Sent CT studies. Await records from [facility]. Sleeping after returned from CT. CT head no acute changes. CT cervical spine no acute changes. See radiology reports. [facility] records reviewed, patient had ground level fall with forehead contusion and moderate headache, CT head negative, EKG unremarkable, labs including test negative. Lab data: POC glucose 116. White blood cell count 9100, hemoglobin 13.7, platelets adequate. Glucose 105. Normal renal function. Serum CO2 21 mildly decreased. Electrolytes unremarkable. Serum hCG negative. Liver functions normal. Ethanol level negative. UDS negative. Mother called from [place], who is apparently coming to see patient in the morning. Mother reports recent visit [facility], ultrasound apparently done with some kind of concern for pelvic mass, test was negative today, patient did not seem to be endorsing any abdominopelvic pain but was quite agitated before IV Valium sedation. Currently sleeping. Consider ultrasound pelvis when patient awake, if she will allow. 0400, patient is still sleeping after Valium dose for emergent imaging. 0600, patient talking on the phone with her mother who is apparently traveling here from [place]. Some concern about some diagnosis of pelvic mass somewhere, very unclear history. Pelvic ultrasound done now this morning, verbal sonotech report small ovarian cyst only. Await Radiology over-read report. 0645, patient seems reluctant to be discharged, wants to stay until her mother gets here from [place] at 1:00 p.m., unclear end point, patient has concerns that she might have had a seizure, but she had thrashing about agitation activity here that did not seem consistent with seizure. Further observe per patient request. Consider group social worker consult, patient declined. 0700, signed out to Dr Bain All lab work, vital signs, nurse triage note, medication list, previous ER visits, and all imaging studies reviewed. GCS 15 nonfocal neuro exam alert and oriented x4. Pelvic ultrasound showed right ovarian cyst 2.[address] head and neck showed no acute process. Normal CBC glucose 105 troponin normal beta quant less than 0.239 UDS negative. Differential diagnosis includes seizure, pseudo-seizure, post concussive syndrome, hypoglycemia, dehydration, substance abuse, anxiety, orthostatic hypotension. Discharge Plan Departure Patient Disposition: Home Clinical Impression: CHI (closed head injury) Qualifiers: Encounter type: initial encounter Qualified Code(s): S09.90XA - Unspecified injury of head, initial encounter Instructions: DI for Closed Head Injury Activity Restrictions/Additional Instructions: Return with new or worsening symptoms. Keep hydrated. Follow up PCP 1-2 weeks for recheck. NO work for next 4 days Referrals: ProviderEmmanuel [Primary Care Provider, Family Practice] Stand Alone Forms: Patient Portal/API, Work Release Note
[2024-09-11 21:20] LABS: Add Manual Diff / Slide Review NO; Hematocrit 39.8 % (36-46); Hemoglobin 13.7 g/dL (12.0-16.0); Lymphocytes Absolute Auto 3800 /uL (1100-4500); Mean Corpuscular HGB Conc 34.4 % (30-36); Mean Corpuscular Hemoglobin 30.4 PG (26-34); Mean Corpuscular Volume 88.3 fL (80-100); Platelet Count 233 X10^3/uL (150-400)
[2024-09-11 21:28] LABS: Ethanol (ETOH) < 10 mg/dL (<10); Magnesium 1.7 mg/dL (1.6-2.3)
[2024-09-11 21:30] LABS: Alanine Aminotransferase 16 IU/L (<35); Albumin 4.7 g/dL (3.5-5.0); Albumin Globulin Ratio 1.5 (1.0-2.8); Alkaline Phosphatase 52 U/L (38-126); Blood Urea Nitrogen 17 mg/dL (7-17); Calcium 9.6 mg/dL (8.4-10.2); Carbon Dioxide 21 mmol/L (22-32); Chloride 103 mmol/L (98-107); Estimated Glomerular Filt Rate > 60 mL/min (>60); Globulin 3.2 g/dL (1.7-4.1); Glucose 105 mg/dL (70-99); HEMOLYSIS 15 (0-50); Potassium 3.4 mmol/L (3.4-5.1); Sodium 138 mmol/L (137-145); Total Protein 7.9 g/dL (6.3-8.2)
[2024-09-11 21:47] LABS: HCG Quantitative /Beta subunit < 2.39 mIU/mL
--- NOTE | 2024-09-11 23:15 | DI.US.S_ITS ---
PROCEDURE: US PELVIC COMPLETE INDICATIONS: Concern for possible ovarian tumor outside facility TECHNIQUE: Real-time scanning was performed of the pelvic organs, with image documentation. Additional endovaginal scanning was necessary due to incomplete visualization of the adnexal and endometrial structures by transabdominal scanning. COMPARISON: [facility], US, US PELVIC COMPLETE, 04/29/2024, 13:40. FINDINGS: Uterus: 7.6 x 4 x 4.8 cm. Anteverted positioning. Endometrium measures 12 mm, within normal limits. Ovaries: Right ovary is mildly enlarged measuring 16 cc. There is 2 x 2.1 cm simple appearing cyst. Left ovary is mildly prominent at 11 cc. No dominant solid or cystic mass otherwise in the bilateral adnexa. Other: No pathologic free fluid IMPRESSION: On today's ultrasound, there is no significant cystic or solid mass in the adnexa. The right ovary is mildly enlarged, with a simple appearing 2.1 cm cyst. Endometrium measures 12 mm, which is within normal limits for age MRI could be obtained if there is further clinical concern. Comparison to reported ovarian tumor from outside facility is not available. Dictated by: Iglesia Stuart M.D. on 09/12/2024 at 6:52 Approved by: Iglesia Stuart M.D. on 09/12/2024 at 6:56
[2024-09-11 23:23] LABS: UR Morphine/Opiate cutoff 300 Negative (Negative); Ur Specific Gravity Normal (Normal); Urine MDMA Negative (Negative); Urine Methamphetamines Negative (Negative); Urine Tetrahydrocannabinol Negative (Negative); Urine Tricyclic Antidepressant Negative (Negative)
[2024-09-12] VITALS (23 sets, daily range): BP systolic 101–109; BP diastolic 58–59; PULSE 64–82; RESP 14–30; O2SAT 96–100
--- NOTE | 2024-09-12 05:03 | EKG_ITS ---
[address] [address] Test Date: 2024-09-12 Pat Name: Elba Bales Department: [facility] Room: Gender: Female Senior Analyst Programmer: CAMERON : 2000 Requested By: Order Number: [id number] Reading MD: Hira Casiano Measurements Intervals [place] Rate: 59 P: 25 VA: 178 QRS: 3 QRSD: 94 T: 7 QT: 400 QTc: 396 Interpretive Statements Sinus bradycardia RSR' or QR pattern in V1 suggests right ventricular conduction delay Electronically Signed On 09-13-2024 8:40:21 PDT by Hira Casiano
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
[2024-09-12 07:36] LABS: Troponin I < 0.012 ng/mL (0.01-0.034)
== END 2024-09-12 09:55 | disposition home or self-care (01) ==
PROVIDERS: Emergency Medicine; Emergency Provider Family Medicine
DX: S09.8XXA Other specified injuries of head, initial encounter (principal); N83.201 Unspecified ovarian cyst, right side; R00.1 Bradycardia, unspecified; W18.30XA Fall on same level, unspecified, initial encounter
CPT/HCPCS: 36415; 70450; 72125; 76830; 76856; 80053; 80305; 80320; 82962; 83735; 84484; 84702; 85025; 93005; 96374; 99283; 99284; J3360